=== PATIENT | male | born 2000 | race Caucasian/White ===

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

== ENCOUNTER → 2020-07-29 | Outpatient (CLI) | payer SELFPAY ==
[~2020-07-29] MED LIST: AMOX500C PO
== END ==
LOC: M LABSMTC 11:41
PROVIDERS: ATTEND Pediatrics
DX: Z20.822 Contact with and (suspected) exposure to COVID-19 (principal)

== ENCOUNTER 2021-11-23 23:57 | Emergency (ER) | payer BC ==
[~2021-11-23] VITALS: Ht 177.8 cm; Wt 75.9 kg
[2021-11-24 04:27] LABS: GC DNA AMPLIFICATION NEGATIVE (NEGATIVE)
[2021-11-24 05:04] VITALS: BP 128/60
== END 2021-11-24 06:38 | disposition home or self-care (01) ==
LOC: M ED 23:57
DX: R30.0 Dysuria (principal)

== ENCOUNTER 2022-10-04 18:14 | Emergency (ER) | payer BC ==
[~2022-10-04] VITALS: Ht 177.8 cm; Wt 73.2 kg
[2022-10-04 18:16] VITALS: BP 129/71
[2022-10-04] MEDS ORDERED: CEFD300CAP PO (18:29)
[2022-10-04] MEDS ORDERED: CIPR7.5D5 OTIC (21:01)
== END 2022-10-04 21:15 | disposition home or self-care (01) ==
LOC: M ED 18:14
DX: H60.93 Unspecified otitis externa, bilateral (principal)

== ENCOUNTER → 2022-10-13 | Outpatient (CLI) | payer BC ==
[~2022-10-13] MED LIST changes: +CEFD300CAP PO; +CIPR7.5D5 OTIC
[2022-10-13 11:43] LABS: HEMATOCRIT 47.4 % (42.0-52.0); MEAN CORPUSCULAR HEMOGLOBIN 29.8 pg (27.0-33.0); MEAN CORPUSCULAR HGB CONC 33.8 g/dl (32.0-36.5); MEAN CORPUSCULAR VOLUME 88.3 fl (80.0-96.0); PLATELET COUNT, AUTOMATED 234 10^3/uL (150-450); RED BLOOD COUNT 5.37 10^6/uL (4.30-6.10); WHITE BLOOD COUNT 6.4 10^3/uL (4.0-10.0)
[2022-10-13 11:59] LABS: HEMOGLOBIN A1c 4.9 % (4.0-6.0)
[2022-10-13 12:11] LABS: THYROID STIMULATING HORMONE 1.404 uIU/ML (0.55-4.78)
[2022-10-13 12:12] LABS: TOTAL 25(OH) VITAMIN D 9.7 NG/ML (20.0-100.0)
[2022-10-13 12:13] LABS: ALBUMIN 4.7 G/DL (3.2-5.2); ALKALINE PHOSPHATASE 72 U/L (46-116); ALT/SGPT 35 U/L (7.0-40); AST/SGOT 17 U/L (<34); BILIRUBIN,TOTAL 0.9 MG/DL (0.3-1.2); BLOOD UREA NITROGEN 21 MG/DL (9-23); CALCIUM LEVEL 9.4 MG/DL (8.5-10.1); CARBON DIOXIDE LEVEL 29 MMOL/L (20-31); CHLORIDE LEVEL 103 MMOL/L (98-107); CHOLESTEROL LEVEL 181 MG/DL (<200); CHOLESTEROL RISK RATIO 4.13 (<5); CREATININE FOR GFR 0.93 MG/DL (0.70-1.30); GLOMERULAR FILTRATION RATE > 60.0 (>60); GLUCOSE, FASTING 74 MG/DL (60-100); HDL CHOLESTEROL 43.8 MG/DL (>40); LDL CHOLESTEROL 126.6 MG/DL (<100); NON-HDL-C 137.2 MG/DL; POTASSIUM SERUM 4.1 MMOL/L (3.5-5.1); SODIUM LEVEL 141 MMOL/L (136-145); TOTAL PROTEIN 7.3 G/DL (5.7-8.2); TRIGLYCERIDES LEVEL 53 MG/DL (<150)
== END ==
LOC: M LAB 11:03
PROVIDERS: ATTEND Family Medicine
DX: D64.9 Anemia, unspecified (principal)

== ENCOUNTER → 2023-03-04 | Outpatient (CLI) | payer BC ==
[2023-03-04 14:16] LABS: HEMATOCRIT 47.6 % (42.0-52.0); HEMOGLOBIN 16.1 g/dl (13.5-17.5); MEAN CORPUSCULAR HGB CONC 33.8 g/dl (32.0-36.5); MEAN CORPUSCULAR VOLUME 88.8 fl (80.0-96.0); PLATELET COUNT, AUTOMATED 173 10^3/uL (150-450); RED BLOOD COUNT 5.36 10^6/uL (4.30-6.10); WHITE BLOOD COUNT 6.5 10^3/uL (4.0-10.0)
[2023-03-04 14:46] LABS: PERCENT SATURATION 28.9 % (19.7-50.0)
[2023-03-04 14:48] LABS: TOTAL 25(OH) VITAMIN D 100.2 NG/ML (20.0-100.0)
[2023-03-04 14:49] LABS: THYROID STIMULATING HORMONE 1.438 uIU/ML (0.55-4.78)
== END ==
LOC: M LAB 12:40
PROVIDERS: ATTEND Family Medicine
DX: D64.9 Anemia, unspecified (principal)